=== PATIENT | male | born 1995 | race African-American/Black ===

== ENCOUNTER 2017-03-26 15:26 | Inpatient (IN) | payer OTHER ==
[~2017-03-26] VITALS: Ht 185.4 cm; Wt 85.3 kg
--- NOTE | 2017-03-26 14:30 | NUR ---
MS RN NOTES PATIENT DIRECT ADMIT FROM [facility], IN STABLE CONDITION. NO SOB OR ACUTE DISTRESS NOTED. PATIENT ALERT, ORIENTED X4. PERIPHERAL IV ON RIGHT AC INTACT PATENT. PATIENT IN BED RESTING. ORIENTED TO ROOM. CALL LIGHT WITHIN REACH. BED IN LOW LOCKED POSITION. SKIN INTACT . INFORMED DR. SEVERINO OF PATIENTS ARRIVAL WILL CONTINUE TO MONITOR.
[2017-03-26] MEDS ORDERED: ONDANSETRON HCL/PF 4 MG/2 ML VIAL IVP PRN (17:00)
[2017-03-26] MEDS ORDERED: Z GUARD REMEDY 2 OZ OINT TP PRN (17:00)
[2017-03-26] MEDS ORDERED: HYDROCODONE/APAP 5/325MG 1 EACH TABLET PO PRN (17:00)
[2017-03-26] MEDS ORDERED: ACETAMINOPHEN 325 MG TABLET PO PRN (17:00)
[2017-03-26] MEDS ORDERED: MAG HYDROX/AL HYDROX/SIMETH 30 ML UDC PO PRN (17:00)
[2017-03-26] MEDS ORDERED: ZOLPIDEM TARTRATE 5 MG TABLET PO PRN (17:00)
[2017-03-26] MEDS ORDERED: HYDROMORPHONE INJ 2 MG/ML DISP.SYRIN IV PRN ×2 (17:00→21:00)
[2017-03-26] MEDS ORDERED: MAGNESIUM HYDROXIDE 30 ML UDC PO PRN (17:00)
[2017-03-26] MEDS: IV NS 0.9% 1,000 ML IV PRN (17:03)
--- NOTE | 2017-03-26 18:00 | NUR ---
MS RN NOTES PATIENT STATES HIS PAIN IS AT 10/[address] SEVERINO NOTIFIED ORDERS OBTAINED TO INCREASE DILAUDID 2 MG EVERY 4 HOURS ORDERS NOTED AND CARRIED OUT. PATIENT NOTED CRYING DUE TO PAIN. OK TO GIVE DOSE NOW. ADMINISTERED.
--- NOTE | 2017-03-26 19:00 | NUR ---
MS RN NOTES PATIENT IN BED RESTING NO SOB OR ACUTE DISTRESS NOTED. ALL DUE MEDICATIONS ADMINISTERED ORDERED. ALL NEED MET WILL ENDORSE CARE TO PM SHIFT.
[2017-03-26] MEDS: HYDROMORPHONE INJ 2 MG/ML DISP.SYRIN IV PRN ×2 (19:26→23:04)
--- NOTE | 2017-03-26 19:30 | NUR ---
MS RN OPENING NOTES: PATIENT IN BED, AOX4, ON ROOM AIR, BREATHING EVEN AND UNLABORED. C/O 10/10 PAIN OVER HIS RIGHT UPPER AND LOWER ABDOMEN, WHICH HE STATES RADIATES TO LEFT SIDE, ASKING FOR PAIN MEDS, INSTRUCTED PATIENT RE PAIN MEDICATION SCHEDULE, AND ASKED IF HE WOULD LIKE NORCO. PATIENT REFUSED THE NORCO AT THIS TIME, SAYING HE WOULD WAIT FOR THE NEXT DILAUDID. PIV OVER RAC G 18 INTACT AND PATENT, INFUSING WELL WITH NS RUNNING AT 100 ML/HR. PROVIDED FOR COMFORT AND SAFETY. BED IN LOWEST AND LOCKED POSITION, SIDERAILS UP X 2, CALL LIGHT WITHIN REACH. WILL CONT TO MONITOR.
[2017-03-26 20:00] VITALS: BP 128/62
--- NOTE | 2017-03-26 23:06 | NUR ---
RN NOTES: PATIENT COMPLAINED OF 10/10 PAIN OVER HIS ABDOMEN. ADMINISTERED DILAUDID 2 MG IV PRN. PROVIDED FOR COMFORT. WILL CONT TO MONITOR.
[2017-03-27] MEDS ORDERED: diphenhydrAMINE HCL 50 MG CAPSULE PO PRN (02:00)
--- NOTE | 2017-03-27 02:11 | NUR ---
RN NOTES: PATIENT C/O ITCHING OVER HIS BACK, STATES HE HAS ECZEMA. CALLED DR DYER, ORDERED FOR DIPHENHYDRAMINE 50 MG PO Q 6 PRN FOR ITCHING. NOTED AND CARRIED OUT.
[2017-03-27] MEDS: HYDROMORPHONE INJ 2 MG/ML DISP.SYRIN IV PRN ×2 (03:04→07:08)
--- NOTE | 2017-03-27 03:04 | NUR ---
RN NOTES: PATIENT COMPLAINED OF 9/10 PAIN OVER ABDOMEN. ADMINISTERED DILAUDID 2 MG IV PRN. WILL CONT TO MONITOR.
[2017-03-27] MEDS ORDERED: diphenhydrAMINE HCL 50 MG CAPSULE ONE (03:22)
--- NOTE | 2017-03-27 03:31 | NUR ---
RN NOTES: ADMINISTERED BENADRYL 50 MG PO FOR ITCHING.
[2017-03-27] MEDS: IV NS 0.9% 1,000 ML IV PRN (06:18)
--- NOTE | 2017-03-27 06:42 | NUR ---
MS RN CLOSING NOTES: PATIENT IN BED, AOX4, ON ROOM AIR, BREATHING EVEN AND UNLABORED. STILL STATES THAT HE HAS ABDOMINAL PAIN, NO NAUSEA OR VOMITING NOTED THROUGH SHIFT. PIV OVER RAC G 18 INTACT AND INFUSING WELL WITH NS RUNNING AT 100 ML/HR. DUE MEDS GIVEN. PROVIDED FOR COMFORT AND SAFETY. BED IN LOWEST AND LOCKED POSITION, SIDERAILS UPX2. NO ACUTE CHANGE IN CONDITION NOTED THROUGH SHIFT. WILL ENDORSE TO AM RN FOR YUNG.
[2017-03-27 06:43] LABS: BASOPHILS % (AUTO) 0.4 % (0.0-2.0); EOSINOPHILS # (AUTO) 0.1 /CMM (0.0-0.7); EOSINOPHILS % (AUTO) 0.6 % (0.0-6.0); HEMATOCRIT 42 % (39-51); HEMOGLOBIN 14.1 g/dL (13.5-17.5); LYMPHOCYTES # (AUTO) 3.2 /CMM (0.8-4.8); LYMPHOCYTES % (AUTO) 35.9 % (20.0-44.0); MEAN CORPUSCULAR HEMOGLOBIN 32 PG (26.0-33.0); MEAN CORPUSCULAR HGB CONC 34 g/dl (31.0-36.0); MEAN CORPUSCULAR VOLUME 93 fL (80-96); MONOCYTES # (AUTO) 0.7 /CMM (0.1-1.30); MONOCYTES % (AUTO) 7.7 % (2.0-12.0); NEUTROPHILS # (AUTO) 4.9 /CMM (1.8-8.9); NEUTROPHILS % (AUTO) 55.4 % (43.0-81.0); PLATELET COUNT (AUTO) 224 /CMM (150-450); RDW COEFFICIENT OF VARIATION 14.3 (11.5-15.0); RED BLOOD CELL COUNT(AUTO) 4.46 MIL/uL (4.5-6.0); WHITE BLOOD COUNT (AUTO) 8.9 K/uL (4.3-11.0)
[2017-03-27 07:03] LABS: ALBUMIN 3.4 g/dL (3.4-5.0); BILIRUBIN,DIRECT 0.1 mg/dL (0.0-0.2); BILIRUBIN,TOTAL 0.9 mg/dL (0.2-1.0); TOTAL PROTEIN, SERUM 6.5 g/dL (6.4-8.2)
[2017-03-27 07:09] VITALS: BP 116/77
[2017-03-27 07:19] LABS: CALCIUM, SERUM 8.9 mg/dL (8.5-10.1); CREATININE 1.1 mg/dL (0.6-1.3); MAGNESIUM 1.8 mg/dL (1.8-2.4); POTASSIUM 3.9 mmol/L (3.5-5.1)
[2017-03-27 08:00] VITALS: BP 123/72
[2017-03-27] MEDS ORDERED: PANTOPRAZOLE 40 MG VIAL IV SCH (09:00)
[2017-03-27] MEDS ORDERED: DICY10CA59 PO (11:41)
[2017-03-27] MEDS ORDERED: HYDR-552 PO (11:41)
[2017-03-27] MEDS ORDERED: DICYCLOMINE HCL 10 MG CAPSULE PO SCH (12:00)
--- NOTE | 2017-03-27 12:15 | NUR ---
M/S RN - Discharge Notes Patient awake, denies abdominal pain, no c/o n/v, no apparent distress seen, stable for discharge home today, cleared by Dr. Carpenter (). Reviewed discharge instructions with patient and he verbalized full understanding of all teachings including follow up care with Dr. Carpenter () on 04/03/17 and [facility] (Hospitalist) on Sunday04/02/17 at 12 pm. No prescriptions and no new meds ordered. Heplock removed on the RAC with catheter tip intact. no swelling. no redness noted on the area. Skin is intact, refused photo to be taken. All belongings given and he denies any missing items. Discharge papers given. Accompanied to the lobby and transported by private car.
== END 2017-03-27 14:00 | disposition home or self-care (01) | DRG 641 ==
LOC: MED 15:26
PROVIDERS: ADMIT Internal Medicine; ATTEND Internal Medicine
DX: E86.0 Dehydration (principal); F12.90 Cannabis use, unspecified, uncomplicated; R10.9 Unspecified abdominal pain; R11.10 Vomiting, unspecified
CPT/HCPCS: 36415; 80048-TC; 80076-TC; 83690-TC; 83735-TC; 84100-TC; 85025-TC; 87081-TC; C9113; J1170; J7030; Q0163

== ENCOUNTER 2017-04-08 07:41 | Emergency (ER) | payer OTHER ==
[~2017-04-08] VITALS: Ht 182.9 cm; Wt 86.2 kg
[~2017-04-08 07:41] MED LIST: DICY10CA59 PO; HYDR-552 PO
--- NOTE | 2017-04-08 07:41 | NUR ---
C/O VOMITING AND DIFFUSE ABDOMINAL PAIN SINCE LAST NIGHT. NAD NOTED. PT AAO X4, AMB WITH STEADY GAIT. RR EVEN AND UNLABORED. PT PROVIDING URINE SAMPLE AT THIS TIME.
[2017-04-08] MEDS ORDERED: ONDANSETRON HCL/PF 4 MG/2 ML VIAL ONE (07:59)
[2017-04-08] MEDS ORDERED: HALOPERIDOL LACTATE INJ 5 MG/ML VIAL IM ONE ×2 (08:00)
[2017-04-08] MEDS ORDERED: ONDANSETRON HCL/PF 4 MG/2 ML VIAL IVP ONE (08:00)
[2017-04-08] MEDS ORDERED: IV NS 0.9% 1,000 ML BAG IV ONE (08:00)
[2017-04-08] MEDS ORDERED: HALOPERIDOL LACTATE INJ 5 MG/ML VIAL ONE (08:09)
[2017-04-08 08:14] LABS: APPEARANCE,URINE CLEAR (CLEAR); BILIRUBIN,URINE 1+ (NEGATIVE); BLOOD, URINE NEGATIVE Ery/uL (NEGATIVE); COLOR,URINE YELLOW (YELLOW); KETONES,URINE 2+ (NEGATIVE); LEUKOCYTE ESTERASE ,URINE NEGATIVE (NEGATIVE); NITRITE, URINE NEGATIVE (NEGATIVE); PH,URINE 8.5 (5.0-8.0); PROTEIN,URINE TRACE mg/dl (NEGATIVE); UGLUCOSE NEGATIVE (NEGATIVE)
[2017-04-08] MEDS ORDERED: FENTANYL PF 100MCG/2ML AMPUL ONE ×2 (08:17→09:36)
[2017-04-08 08:22] LABS: BASOPHILS % (AUTO) 0.2 % (0.0-2.0); HEMATOCRIT 49 % (39-51); HEMOGLOBIN 16.4 g/dL (13.5-17.5); LYMPHOCYTES # (AUTO) 1.9 /CMM (0.8-4.8); LYMPHOCYTES % (AUTO) 9.1 % (20.0-44.0); MEAN CORPUSCULAR HEMOGLOBIN 30 PG (26.0-33.0); MEAN CORPUSCULAR HGB CONC 33 g/dl (31.0-36.0); MEAN CORPUSCULAR VOLUME 91 fL (80-96); MONOCYTES # (AUTO) 0.8 /CMM (0.1-1.30); MONOCYTES % (AUTO) 3.9 % (2.0-12.0); NEUTROPHILS # (AUTO) 17.9 /CMM (1.8-8.9); NEUTROPHILS % (AUTO) 86.8 % (43.0-81.0); PLATELET COUNT (AUTO) 357 /CMM (150-450); RDW COEFFICIENT OF VARIATION 14.5 (11.5-15.0); RED BLOOD CELL COUNT(AUTO) 5.39 MIL/uL (4.5-6.0); WHITE BLOOD COUNT (AUTO) 20.6 K/uL (4.3-11.0)
[2017-04-08 08:26] LABS: BACTERIA,URINE None seen /HPF (None Seen); RBC,URINE 0-3 /HPF (0-2); WBC,URINE 0-3 /HPF (0-3)
[2017-04-08 08:27] LABS: SQUAMOUS EPITHELIAL CELL,UR Few /HPF (None Seen)
[2017-04-08] MEDS ORDERED: HYDROMORPHONE 1 MG/1 ML DISP.SYRIN IV ONE (08:30)
[2017-04-08] MEDS ORDERED: FENTANYL PF 100MCG/2ML AMPUL IV ONE ×2 (08:30→09:30)
--- NOTE | 2017-04-08 08:30 | NUR ---
MEDICATIONS GIVEN ORDERED
[2017-04-08 08:33] LABS: CALCIUM, SERUM 10.3 mg/dL (8.5-10.1); CREATININE 1.4 mg/dL (0.6-1.3); POTASSIUM 3.7 mmol/L (3.5-5.1)
[2017-04-08 08:40] LABS: ALBUMIN 5.1 g/dL (3.4-5.0); BILIRUBIN,DIRECT 0.3 mg/dL (0.0-0.2); BILIRUBIN,TOTAL 1.6 mg/dL (0.2-1.0); TOTAL PROTEIN, SERUM 9.1 g/dL (6.4-8.2)
[2017-04-08] MEDS ORDERED: FAMOTIDINE (20 MG) 20 MG TABLET ONE (10:58)
[2017-04-08] MEDS ORDERED: FAMOTIDINE (20 MG) 20 MG TABLET PO ONE (11:00)
[2017-04-08 11:21] VITALS: BP 125/67
== END 2017-04-08 11:41 | disposition home or self-care (01) ==
LOC: ER 07:43
DX: R10.84 Generalized abdominal pain (principal); R11.2 Nausea with vomiting, unspecified; Z90.89 Acquired absence of other organs
CPT/HCPCS: 36415; 76700; 80048; 80076; 80305; 81001; 83690; 85025; 96361; 96372; 96374 ×2; 96375; 99285; A4606; J1630; J2405; J3010 ×2; Z7610; 81000-TC

== ENCOUNTER 2017-04-14 14:34 | Emergency (ER) | payer OTHER ==
[~2017-04-14] VITALS: Ht 177.8 cm; Wt 74.8 kg
--- NOTE | 2017-04-14 14:50 | NUR ---
BIB SELF C/O DIFFUSED ABDOMINAL PAIN WITH NAUSEA AND VOMITING S/P EATING CHICKEN, NAD NOTED, RESP EVEN AND UNLABORED, SKIN WARM AND DRY. PT PUT ON HOSPITAL GOWN, ON MONITOR, WAITING FOR MD MONTERROSO.
[2017-04-14] MEDS ORDERED: ONDANSETRON HCL/PF 4 MG/2 ML VIAL IV ONE ×2 (15:30→16:30)
[2017-04-14] MEDS ORDERED: IV NS 0.9% 1,000 ML BAG IV ONE (15:30)
[2017-04-14] MEDS ORDERED: FAMOTIDINE/PF INJ 20 MG/2 ML VIAL IV ONE ×2 (15:30→15:37)
[2017-04-14] MEDS ORDERED: ONDANSETRON HCL/PF 4 MG/2 ML VIAL ONE ×2 (15:38→16:32)
[2017-04-14 15:45] LABS: CALCIUM, SERUM 9.5 mg/dL (8.5-10.1); POTASSIUM 3.7 mmol/L (3.5-5.1)
[2017-04-14 15:51] LABS: ALBUMIN 4.3 g/dL (3.4-5.0); BILIRUBIN,TOTAL 0.8 mg/dL (0.2-1.0); TOTAL PROTEIN, SERUM 7.9 g/dL (6.4-8.2)
[2017-04-14 15:52] LABS: BASOPHILS # (AUTO) 0.1 /CMM (0.0-0.2); LYMPHOCYTES # (AUTO) 2.1 /CMM (0.8-4.8); MONOCYTES # (AUTO) 0.9 /CMM (0.1-1.30)
[2017-04-14 15:53] LABS: BASOPHILS % (AUTO) 0.6 % (0.0-2.0); EOSINOPHILS # (AUTO) 0.1 /CMM (0.0-0.7); EOSINOPHILS % (AUTO) 0.3 % (0.0-6.0); HEMATOCRIT 49 % (39-51); HEMOGLOBIN 15.9 g/dL (13.5-17.5); LYMPHOCYTES % (AUTO) 10.3 % (20.0-44.0); MEAN CORPUSCULAR HEMOGLOBIN 30 PG (26.0-33.0); MEAN CORPUSCULAR HGB CONC 33 g/dl (31.0-36.0); MEAN CORPUSCULAR VOLUME 92 fL (80-96); MONOCYTES % (AUTO) 4.4 % (2.0-12.0); NEUTROPHILS # (AUTO) 16.7 /CMM (1.8-8.9); NEUTROPHILS % (AUTO) 84.4 % (43.0-81.0); PLATELET COUNT (AUTO) 364 /CMM (150-450); RDW COEFFICIENT OF VARIATION 13.5 (11.5-15.0); RED BLOOD CELL COUNT(AUTO) 5.31 MIL/uL (4.5-6.0); WHITE BLOOD COUNT (AUTO) 19.9 K/uL (4.3-11.0)
[2017-04-14 16:21] LABS: APPEARANCE,URINE Clear (CLEAR); BILIRUBIN,URINE Negative (NEGATIVE); BLOOD, URINE Negative Ery/uL (NEGATIVE); COLOR,URINE Yellow (YELLOW); KETONES,URINE Trace (NEGATIVE); LEUKOCYTE ESTERASE ,URINE Negative (NEGATIVE); NITRITE, URINE Negative (NEGATIVE); PROTEIN,URINE Negative (NEGATIVE); UGLUCOSE Negative (NEGATIVE); UROBILINOGEN,URINE 0.2 EU/dL (0.2)
[2017-04-14 16:24] LABS: PH,URINE >8.5 (5.0-8.0)
[2017-04-14 16:30] LABS: BACTERIA,URINE Rare /HPF (None Seen); RBC,URINE 0-2 /HPF (0-2); SQUAMOUS EPITHELIAL CELL,UR Few /HPF (None Seen)
[2017-04-14] MEDS ORDERED: KETOROLAC TROMETHAMINE INJ 30 MG/ML VIAL IV ONE (16:30)
[2017-04-14] MEDS ORDERED: KETOROLAC TROMETHAMINE 15 MG/ML VIAL ONE (16:32)
[2017-04-14] MEDS ORDERED: HALOPERIDOL LACTATE INJ 5 MG/ML VIAL IV ONE (17:30)
[2017-04-14] MEDS ORDERED: PROMETHAZINE HCL 25 MG/ML AMPUL IV ONE (17:30)
[2017-04-14] MEDS ORDERED: HALOPERIDOL LACTATE INJ 5 MG/ML VIAL ONE (17:35)
[2017-04-14] MEDS ORDERED: PROMETHAZINE HCL 25 MG/ML AMPUL ONE (17:35)
[2017-04-14 18:26] VITALS: BP 134/76
--- NOTE | 2017-04-14 18:28 | NUR ---
Patient discharged to home in stable condition. Written and verbal after care instructions given. Patient verbalizes understanding of instruction. IV removed. Catheter intact and site benign. Pressure and 4x4 applied to site. No bleeding noted.
== END 2017-04-14 18:27 | disposition home or self-care (01) ==
LOC: ER 14:36
DX: R11.10 Vomiting, unspecified (principal); T40.7X5A Adverse effect of cannabis (derivatives), initial encounter; Z76.5 Malingerer [conscious simulation]; Y92.89 Other specified places as the place of occurrence of the external cause; Z90.89 Acquired absence of other organs
CPT/HCPCS: 36415; 80053; 80305; 81001; 83690; 85025; 96361; 96374 ×2; 96375; 99284; A4606; J1630; J1885; J2405 ×2; J2550; J3490; J7030; Z7610; 81000-TC